=== PATIENT | male | born 1990 | race Caucasian/White ===

== ENCOUNTER 2017-02-03 15:32 | Emergency (ER) | payer OTHER ==
[2017-02-03 16:33] VITALS: BP 114/70
[2017-02-03] MEDS ORDERED: Amoxicillin/Clavulanate TAB* 500 MG PO ONE (18:38)
--- NOTE | 2017-02-03 18:39 | ED ---
Throat Pain/Nasal Congestion - HPI Summary HPI Summary: 26M presents with sinus pressure for two weeks. He has green snot from his nose. He had a cold that started on mothers day and that he had sore throat cough and some sinus congestion. Since then the sinus congestion has gotten worst. He has been using a netipot. He has been using OTC cold medication without relief. He denies any history of allergies seasonal. He does have a history of sinus infections. He denies any fever, eye pain. He admits to dull headache. - History of Current Complaint Chief Complaint: UCRespiratory Time Seen by Provider: 02/03/17 18:29 - Allergies/Home Medications Allergies/Adverse Reactions: Allergies Allergy/AdvReac Type Severity Reaction Status Date / Time No Known Allergies Allergy Verified 02/03/17 16:33 PMH/Surg Hx/FS Hx/Imm Hx Endocrine/Hematology History: Denies: Hx Anticoagulant Therapy Cardiovascular History: Denies: Hx Hypertension Infectious Disease History: No Infectious Disease History: Denies: Traveled Outside the [place] in Last 30 Days - Family History Known Family History: Positive: Hypertension - Social History Alcohol Use: Occasionally Substance Use Type: Reports: None Smoking Status (MU): Never Smoked Tobacco Review of Systems Negative: Fever Positive: Nasal Discharge Negative: Chest Pain Positive: Cough. Negative: Shortness Of Breath All Other Systems Reviewed And Are Negative: Yes Physical Exam Triage Information Reviewed: Yes Vital Signs On Initial Exam: Initial Vitals Temp Pulse Resp BP Pulse Ox 98.9 F 83 16 114/70 99 02/03/17 16:30 02/03/17 16:30 02/03/17 16:30 02/03/17 16:30 02/03/17 16:30 Vital Signs Reviewed: Yes Appearance: Positive: Well-Appearing Skin: Positive: Warm, Dry Head/Face: Positive: Normal Head/Face Inspection Eyes: Positive: Normal, EOMI, LUIS, Conjunctiva Clear ENT: Positive: Pharynx normal, Nasal congestion, Nasal drainage, TMs normal, Other - sinus tenderness to palpation Neck: Positive: Supple, Nontender, No Lymphadenopathy Respiratory/Lung Sounds: Positive: Clear to Auscultation, Breath Sounds Present Cardiovascular: Positive: Normal, RRR Diagnostics - Vital Signs Vital Signs Temp Pulse Resp BP Pulse Ox 02/03/17 16:30 98.9 F 83 16 114/70 99 - Laboratory Lab Statement: Any lab studies that have been ordered have been reviewed, and results considered in the medical decision making process. EENT Course/Dx - Course Course Of Treatment: 26M presents with sinus pressure and discharge for 2 weeks. stated as cold and got worst. tried OTC cold med w/o relief. on exam tender to sinus. will treat as sinusitis with augmentin. patient understands and agrees with plan - Differential Diagnoses Differential Diagnoses: Sinusitis, Tonsilitis, URI/Bronchitis - Diagnoses Provider Diagnoses: Sinusitis Discharge - Discharge Plan Condition: Good Disposition: HOME Prescriptions: Amoxicillin/Clavulanate TAB* [Augmentin TAB 500 mg*] 500 mg PO BID #19 tab Fluticasone NASAL SPRAY 50MCG* [Flonase NASAL SPRAY 50MCG*] 1 spray BOTH NARES DAILY #1 btl Patient Education Materials: Sinusitis (ED) Referrals: No Primary Care Phys,NOPCP [Primary Care Provider] - Additional Instructions: Take antibiotic twice a day for 10 days, first dose given in UC Use saline spray in nose as much as needed Use flonase one spray each nostril once a day Use OTC decongestants Follow up with primary care physician within a week for no improvement Return to ED with any new or worsening symptoms
== END 2017-02-03 19:08 | disposition home or self-care (01) ==
LOC: UCEAST 15:32
DX: J32.9 Chronic sinusitis, unspecified (principal)
CPT/HCPCS: 99202; A9270-GY; G0463